=== PATIENT | female | born 1955 | race Caucasian/White ===

== ENCOUNTER 2019-02-10 11:03 | Emergency (ER) | payer OTHER ==
[~2019-02-10] VITALS: Ht 165.1 cm; Wt 68.5 kg
[2019-02-10 11:19] LABS: BASOPHILS % (AUTO) 0.6 % (0.0-2.0); EOSINOPHILS % (AUTO) 1.4 % (0.0-6.0); HEMATOCRIT 41 % (33-45); LYMPHOCYTES # (AUTO) 1.8 /CMM (0.8-4.8); LYMPHOCYTES % (AUTO) 23.6 % (20.0-44.0); MEAN CORPUSCULAR HGB CONC 34 g/dl (31.0-36.0); MEAN CORPUSCULAR VOLUME 96 fL (82-100); MONOCYTES # (AUTO) 0.5 /CMM (0.1-1.30); MONOCYTES % (AUTO) 6.7 % (2.0-12.0); NEUTROPHILS % (AUTO) 67.7 % (43.0-81.0); PLATELET COUNT (AUTO) 189 /CMM (150-450); RED BLOOD CELL COUNT(AUTO) 4.24 MIL/uL (4.0-5.2); WHITE BLOOD COUNT (AUTO) 7.4 K/uL (4.3-11.0)
[2019-02-10] MEDS ORDERED: CEPH250C PO ×2 (11:23→11:27)
[2019-02-10] MEDS ORDERED: PHEN-705 PO ×2 (11:23→11:27)
[2019-02-10 11:26] LABS: CALCIUM, SERUM 8.6 mg/dL (8.5-10.1); CARBON DIOXIDE 33 mmol/L (21-32); CHLORIDE 101 mmol/L (98-107); CREATININE 0.6 mg/dL (0.6-1.3); GLUCOSE 107 mg/dL (74-106); POTASSIUM 3.8 mmol/L (3.5-5.1); SODIUM SERUM 140 mmol/L (136-145); UREA NITROGEN, BLOOD 21 mg/dL (7-18)
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
[2019-02-10 11:31] LABS: ALANINE AMINOTRANSFERASE 47 U/L (12-78); ALBUMIN 3.9 g/dL (3.4-5.0); ALCOHOL, BLOOD < 3 mg/dL (0-0); ALKALINE PHOSPHATASE 58 U/L (46-116); ASPARTATE AMINOTRANSFERASE 60 U/L (15-37); BILIRUBIN,DIRECT 0.1 mg/dL (0.0-0.2); BILIRUBIN,TOTAL 0.4 mg/dL (0.2-1.0); SALICYLATE 3.2 mg/dL (2.8-20.0); TOTAL PROTEIN, SERUM 8.2 g/dL (6.4-8.2)
[2019-02-10 11:32] LABS: ACETAMINOPHEN 0 ug/ml (10-30)
[2019-02-10 11:34] LABS: APPEARANCE,URINE Slightly Cloudy (CLEAR); BILIRUBIN,URINE SMALL (NEGATIVE); BLOOD, URINE Moderate Ery/uL (NEGATIVE); COLOR,URINE Yellow (YELLOW); KETONES,URINE 15 (NEGATIVE); LEUKOCYTE ESTERASE ,URINE Trace (NEGATIVE); NITRITE, URINE Negative (NEGATIVE); PH,URINE 5.5 (5.0-8.0); PROTEIN,URINE 100 mg/dl (NEGATIVE); UGLUCOSE Negative (NEGATIVE); UROBILINOGEN,URINE 0.2 EU/dL (0.2)
[2019-02-10 11:40] LABS: BACTERIA,URINE Few /HPF (None Seen); SQUAMOUS EPITHELIAL CELL,UR Moderate /HPF (None Seen); WBC,URINE 15-20 /HPF (0-3)
[2019-02-10 11:41] LABS: HYALINE CASTS, URINE Rare /LPF (None Seen)
[2019-02-10] MEDS ORDERED: CEFTRIAXONE 1 G VIAL ONE (12:21)
[2019-02-10] MEDS ORDERED: CEFTRIAXONE 1GM BAG (ER ONLY) 1 GM/50 ML PIGGYBACK IV ONE (12:30)
--- NOTE | 2019-02-10 12:30 | NUR ---
CALLED [facility] FOR PSYCH EVAL, ETA WITHIN THE HOUR
--- NOTE | 2019-02-10 12:35 | NUR ---
CALLED [facility] FOR SOCIAL SERVICE CONSULT.
--- NOTE | 2019-02-10 12:39 | NUR ---
Karrie social service at bedside and talking to the patient.
--- NOTE | 2019-02-10 12:45 | NUR ---
CALLED FOR FOOD TRAY
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
--- NOTE | 2019-02-10 13:45 | NUR ---
JAZMINE contacted Danya in intake at [facility] to inquire if pt. will be accepted. Danya informed JAZMINE that they are reviewing the case and to call her back in 15 minutes.
--- NOTE | 2019-02-10 13:55 | NUR ---
JAZMINE received a call back from Danya at [facility] Intake informing JAZMINE that pt. has been accepted to [facility] and accepting psychiatrist is Dr. Hernandez. Nurse to nurse report needs to be called in to x [phone]. Danya also requested for JAZMINE to fax discharge note that states, pt. is " medically cleared." JAZMINE faxed discharge note to Danya at . JAZMINE updated Quin in ED with aforementioned information and discharge plan.
--- NOTE | 2019-02-10 13:56 | NUR ---
PT ACCEPTED TO [facility] BY DR. REDDING, NUMBER FOR REPORT IS [phone]
--- NOTE | 2019-02-10 14:03 | NUR ---
called [facility] and spoke to Julianne CEJA and report given and for faiza.
--- NOTE | 2019-02-10 14:08 | NUR ---
CALLED [facility] FOR TRANSPORT TO [facility], JAMIE 30 MIN, TRIP#[id number]
--- NOTE | 2019-02-10 15:00 | NUR ---
patient picked up by Ambulance going to [facility] in no apparent distress noted.
[2019-02-10 15:31] VITALS: BP 120/66
== END 2019-02-10 15:32 ==
LOC: ER 11:03
DX: F28 Other psychotic disorder not due to a substance or known physiological condition (principal); F17.200 Nicotine dependence, unspecified, uncomplicated; Z79.899 Other long term (current) drug therapy
CPT/HCPCS: 36415; 71045; 80048; 80076; 80305; 80307; 80329; 81001; 85025; 96365; 99285; G0480; J0696; 81000-TC